=== PATIENT | male | born 1965 | race African-American/Black ===

== ENCOUNTER 2018-04-26 14:41 | Emergency (ER) | payer MEDICAID ==
[~2018-04-26] VITALS: Ht 170.2 cm; Wt 72.6 kg
[~2018-04-26 14:41] MED LIST: ABILIFY15 MG ORAL; HUMALOG100 UNIT/4 SUBQ; METFORMIN HCL1000 M1 ORAL; NAPROXEN500 M2 ORAL; TRAZODONE HCL50 MG ORAL
[2018-04-26 14:50] VITALS: BP 103/78
--- NOTE | 2018-04-26 15:02 | Emergency Room Report ---
History of Present Illness General Chief Complaint: Headache Source: Patient Present Illness HPI Patient is a 52-year-old male presented after increased generalized weakness. Patient reports having weak recently been off of his insulin for approximately 2 weeks. He states he is run out of his medications which include metformin as well as regular insulin. Patient reports having increased thirst as well as increased headache. Patient denies having any prior history of kidney problems. He states he has not been having any fever. He denies any skin rash.Patient was brought in by EMS. Patient states that he has been having increased generalized weakness. Allergies: Coded Allergies: No Known Allergies (Unverified , 11/10/15) Patient History Past Medical History: see triage record Reviewed Nursing Documentation: PMH: Agreed; PSxH: Agreed Nursing Documentation-PMH Past Medical History: No History, Except For Hx Hypertension: Yes Hx Diabetes: Yes Review of Systems All Other Systems: negative except mentioned in HPI Physical Exam Vital Signs Date Time Temp Pulse Resp B/P (MAP) Pulse Ox O2 Delivery O2 Flow Rate FiO2 04/26/18 14:42 98.6 91 16 134/98 98 Room Air Sp02 EP Interpretation: reviewed, normal General Appearance: normal inspection, well appearing, no apparent distress, alert, GCS 15, Chronically Ill Head: atraumatic ENT: normal ENT inspection, hearing grossly normal, normal voice Neck: normal inspection, full range of motion, supple, no bony tend Respiratory: normal inspection, lungs clear, normal breath sounds, no respiratory distress, no retraction, no wheezing Cardiovascular #1: regular rate, rhythm, no edema Gastrointestinal: normal inspection, normal bowel sounds, non tender, soft, no guarding, no hernia Genitourinary: no CVA tenderness Musculoskeletal: normal inspection, back normal, normal range of motion Neurologic: normal inspection, alert, oriented x3, responsive, b2b sales representative III-XII nml as tested, motor strength/tone normal, speech normal Psychiatric: normal inspection, judgement/insight normal, mood/affect normal Skin: normal inspection, normal color, no rash Medical Decision Making ER Course Patient presented for hyperglycemia. Differential diagnosis include was not limited to diabetic ketoacidosis, nonketotic hyperosmolar coma, medication noncompliance, renal insufficiency, among others. Because of complexity of patient's case laboratory testing and imaging studies were ordered. Patient started on IV fluids EKG Diagnostic Results Rate: normal - 71 Rhythm: NSR ST Segments: no acute changes Last Vital Signs Date Time Temp Pulse Resp B/P (MAP) Pulse Ox O2 Delivery O2 Flow Rate FiO2 04/26/18 14:42 98.6 91 16 134/98 98 Room Air Scripts Syring W-Ndl,Disp,Insul,0.3ML (EASY TOUCH INSULIN SYRINGE) 1 Each Disp.syrin EACH , #90 Prov: Nam Tilley MD 04/26/18 Insulin Lispro (HUMALOG) 100 Unit/1 Ml Cartridge 2 UNITS SUBQ NEEDED, #1 VIAL 0 Refills Prov: Nam Tilley MD 04/26/18 Metformin Hcl* (METFORMIN HCL*) 1,000 Mg Tablet 1000 MG ORAL BID, #30 TAB 0 Refills Prov: Nam Tilley MD 04/26/18 Nam Tilley MD Apr 26, 2018 15:02
[2018-04-26 15:35] LABS: APPEARANCE,URINE CLEAR; BILIRUBIN, URINE NEGATIVE (NEGATIVE); COLOR,URINE PALE YELLOW; GLUCOSE, URINE (UA) 4+ (NEGATIVE); KETONES,URINE NEGATIVE (NEGATIVE); LEUKOCYTE ESTERASE ,URINE NEGATIVE (NEGATIVE); NITRITE,URINE NEGATIVE (NEGATIVE); PH,URINE 8 (4.5-8.0); PROTEIN,URINE NEGATIVE (NEGATIVE); UROBILINOGEN,URINE NORMAL MG/DL (0.0-1.0)
[2018-04-26 15:43] LABS: ALANINE AMINOTRANSFERASE 22 U/L (12-78); ALBUMIN/GLOBULIN RATIO 0.7 (1.0-2.7); ALKALINE PHOSPHATASE 158 U/L (46-116); ANION GAP 7 mmol/L (5-15); ASPARTATE AMINO TRANSFERASE 10 U/L (15-37); BILIRUBIN,TOTAL 0.1 MG/DL (0.2-1.0); BLOOD UREA NITROGEN 18 mg/dL (7-18); CALCIUM 9.1 MG/DL (8.5-10.1); CARBON DIOXIDE 28 MMOL/L (21-32); CHLORIDE 97 MMOL/L (98-107); POTASSIUM 4.5 MMOL/L (3.5-5.1); SODIUM 132 MMOL/L (136-145)
[2018-04-26 15:50] LABS: BASOPHILS % (AUTO) 1.1 % (0.0-2.0); EOSINOPHILS % (AUTO) 3.1 % (0.0-3.0); HEMOGLOBIN 12.6 G/DL (14.2-18.0); LYMPHOCYTES % (AUTO) 25.6 % (20.0-45.0); MEAN CORPUSCULAR VOLUME 89 FL (80-99); MONOCYTES % (AUTO) 6.9 % (1.0-10.0); NEUTROPHILS % (AUTO) 63.4 % (45.0-75.0); PLATELET COUNT 211 K/UL (150-450); RED BLOOD COUNT 4.39 M/UL (4.70-6.10); RED CELL DISTRIBUTION WIDTH 12.4 % (11.6-14.8); WHITE BLOOD COUNT 8.3 K/UL (4.8-10.8)
[2018-04-26] MEDS ORDERED: metFORMIN 500mg tab ORAL ONE (16:30)
[2018-04-26] MEDS ORDERED: METFORMIN HCL1000 M1 ORAL (17:52)
[2018-04-26] MEDS ORDERED: HUMALOG100 UNIT/4 SUBQ (17:52)
[2018-04-26] MEDS ORDERED: EASY TOUCH INS MC (17:59)
[2018-04-26 18:15] VITALS: BP 106/81
--- NOTE | 2018-04-27 14:17 | Cardiology Report ---
APPROVED REPORT EKG Measurement Heart [id number] ID [id number] Normal sinus rhythm Left axis deviation Abnormal ECG
== END 2018-04-26 18:10 | disposition home or self-care (01) ==
LOC: EDBD 14:41 → EMR 15:12
DX: E11.65 Type 2 diabetes mellitus with hyperglycemia (principal); I10 Essential (primary) hypertension
CPT/HCPCS: 36415; 80053; 81003; 82009; 83735; 83930; 85025; 93005; 96360; 99284

== ENCOUNTER 2018-08-09 13:36 | Emergency (ER) | payer MEDICAID ==
[~2018-08-09] VITALS: Ht 170.2 cm; Wt 68.9 kg
[~2018-08-09 13:36] MED LIST changes: +EASY TOUCH INS MC
[2018-08-09 13:45] VITALS: BP 139/88
[2018-08-09] MEDS ORDERED: NAPROXEN500 M2 ORAL (13:56)
[2018-08-09] MEDS ORDERED: ROBAXIN500 MG PO (13:56)
--- NOTE | 2018-08-09 13:56 | Emergency Room Report ---
History of Present Illness General Chief Complaint: Pain Source: Patient Present Illness HPI 52-year-old male with history of diabetes uncontrolled as he reports he has not been using his insulin regularly here complaining of pain in left side of his neck and left arm times 3 months. patient had a frostbite on his finger on the left side 3 months ago however denies any pain or numbness in the affected area. Patient speaks in full sentences, denies generalized or unilateral weakness denies neck stiffness or photophobia. No chest pain, S OB, palpitation , abdominal pain. Has not taken any medication for pain. Is able to move his neck to the left side however complains of 10 out of 10 pain with radiation to left arm and intermittent. he never followed up with a primary care provider after his frostbite. After discharge his called me and asked me if his her was assessed for possible stroke or if we did MRI of the neck and I mentioned that since this is a chronic issue the MRI needs to be done by the primary care provider. I told patient's that if any new symptoms return to the emergency room if suspicious of stroke. Allergies: Coded Allergies: No Known Allergies (Unverified , 11/10/15) Patient History Past Medical History: see triage record Past Surgical History: unable to obtain Pertinent Family History: none Immunizations: UTD Reviewed Nursing Documentation: PMH: Agreed; PSxH: Agreed Nursing Documentation-PMH Hx Hypertension: Yes Hx Diabetes: Yes Review of Systems All Other Systems: negative except mentioned in HPI Physical Exam Vital Signs Date Time Temp Pulse Resp B/P (MAP) Pulse Ox O2 Delivery O2 Flow Rate FiO2 08/09/18 13:45 98.2 89 16 139/88 100 Room Air Sp02 EP Interpretation: reviewed, normal General Appearance: normal inspection, well appearing, no apparent distress, alert, GCS 15, non-toxic Head: normocephalic, atraumatic Eyes: bilateral eye normal inspection, bilateral eye PERRL ENT: normal ENT inspection, hearing grossly normal, normal pharynx, no angioedema Neck: supple, thyroid normal, no meningismus, no bony tend, other - Pain with range of motion when turning left Respiratory: normal inspection, chest non-tender, lungs clear, normal breath sounds, no rhonchi Cardiovascular #1: normal inspection, no edema, no murmur Cardiovascular #2: 2+ carotid (R), 2+ carotid (L), 2+ radial (R), 2+ radial (L) Gastrointestinal: normal inspection, non tender, soft Rectal: deferred Genitourinary: no CVA tenderness Musculoskeletal: back normal, gait/station normal, no calf tenderness, decreased range of motion - neck when turning left lateral , other - discoloration of left thrid finger(post old frostbite) no new symptoms noted Neurologic: normal inspection, alert, oriented x3 Psychiatric: normal inspection, judgement/insight normal Skin: no rash, warm/dry, other - chronic discoloration of left third finger due to [id number] Lymphatic: normal inspection, no adenopathy Medical Decision Making PA Attestation Diagnosis and treatment plans were reviewed and discussed with my supervising physician Dr. Tilley Diagnostic Impression: Primary Impression: Neck muscle strain Additional Impression: Chronic pain of left upper extremity ER Course 52-year-old male with history of diabetes uncontrolled as he reports he has not been using his insulin regularly here complaining of pain in left side of his neck and left arm times 3 months. patient had a frostbite on his finger on the left side 3 months ago however denies any pain or numbness in the affected area. Patient speaks in full sentences, denies generalized or unilateral weakness denies neck stiffness or photophobia. No chest pain, SOB, palpitation , abdominal pain. Has not taken any medication for pain. Is able to move his neck to the left side however complains of 10 out of 10 pain with radiation to left arm and intermittent. he never followed up with a primary care provider after his frostbite. After discharge his called me and asked me if his her was assessed for possible stroke or if we did MRI of the neck and I mentioned that since this is a chronic issue the MRI needs to be done by the primary care provider. I told patient's that if any new symptoms return to the emergency room if suspicious of stroke. Ddx considered but are not limited to neck strain, chronic neck pain, neck sprain Vital signs: are WNL, pt. is afebrile H&PE are most consistent with neck strain ORDERS: robaxin, naproxen ED INTERVENTIONS: None required at this time. DISCHARGE: At this time pt. is stable for d/c to home. Will provide printed patient care instructions, and any necessary prescriptions. Care plan and follow up instructions have been discussed with the patient prior to discharge. Follow with a primary care provider for assessment of diabetes, MRI and assessment of old frostbite no indication for x-ray today as this is a chronic issue Last Vital Signs Date Time Temp Pulse Resp B/P (MAP) Pulse Ox O2 Delivery O2 Flow Rate FiO2 08/09/18 13:45 98.2 89 16 139/88 100 Room Air Disposition: HOME, SELF-CARE Condition: Stable Scripts Naproxen* (NAPROXEN*) 500 Mg Tablet 500 MG ORAL TWICE A DAY, #30 TAB Prov: Aroldo Melgoza 08/09/18 Methocarbamol* (ROBAXIN*) 500 Mg Tablet 500 MG PO TID, #21 TAB 0 Refills Prov: Aroldo Melgoza 08/09/18 Patient Instructions: Cervical Strain and Sprain With Rehab[facility] Additional Instructions: All with the primary care provider for insulin levels as well as more medication follow-up with primary care provider regarding your left arm pain as it is chronic and it can be secondary to-year-old frostbite since there is no new injury no imaging is needed at this point in the emergency room your primary doctor may need to order MRI of your neck and your left arm. Aroldo Melgoza Aug 09, 2018 13:56
[2018-08-09 14:04] VITALS: BP 145/80
--- NOTE | 2018-08-09 14:04 | NUR ---
ER DISCHARGE NOTE: Pt was seen due to left arm pain. Patient is cleared to be discharged per PA, pt is aox4, on room air, with stable vital signs. pt was given dc and prescription instructions, pt was able to verbalize understanding, pt id band removed. pt is able to ambulate with steady gait. pt took all belongings.
== END 2018-08-09 14:04 | disposition home or self-care (01) ==
LOC: EMR 13:50
DX: S16.1XXA Strain of muscle, fascia and tendon at neck level, initial encounter (principal); G89.29 Other chronic pain; X58.XXXA Exposure to other specified factors, initial encounter; Y92.9 Unspecified place or not applicable; I10 Essential (primary) hypertension; E11.9 Type 2 diabetes mellitus without complications; Z91.14 Patient's other noncompliance with medication regimen
CPT/HCPCS: 99282